=== PATIENT | male | born 1945 | race Caucasian/White ===

== ENCOUNTER 2017-02-14 06:14 | Day surgery (SDC) | payer OTHER, MEDICARE ==
[2017-02-06 09:18] VITALS: BMI 27.2
[2017-02-14] MEDS ORDERED: LEVOFLOXACIN 500 MG IVPB 100 ML IVPB ONE (09:09)
[2017-02-14] MEDS ORDERED: MIDAZOLAM HCL 2 MG/2 ML SINGLE DOSE VIAL ONE (09:10)
[2017-02-14] MEDS ORDERED: LEVOFLOXACIN 500 MG PREMIX BAG IVPB ONE (09:22)
[2017-02-14] MEDS ORDERED: PROPOFOL 20 ML ONE (09:27)
[2017-02-14] MEDS ORDERED: FUROSEMIDE 40 MG/4 ML INJECTABLE VIAL ONE (10:37)
[2017-02-14] MEDS ORDERED: ACETAMINOPHEN 325 MG TABLET (FP) PO PRN (10:57)
[2017-02-14] MEDS ORDERED: ONDANSETRON 4 MG/2 ML VIAL IVPUSH PRN (10:57)
[2017-02-14] MEDS ORDERED: oxyCODONE HCL 5 MG TABLET PO PRN ×2 (10:57→11:12)
[2017-02-14] MEDS ORDERED: LACTATED RINGERS SOLUTION 1,000 ML IV SCH (11:00)
--- NOTE | 2017-02-14 11:12 | OP ---
Operative Note - Note: Operative Date: 02/14/17 Pre-Operative Diagnosis: BPH with incomplete emptying Operation: cysto/bipolar TURP/TURVP(plasma button) Findings: trilobar hyperplasia Post-Operative Diagnosis: Same as Pre-op Surgeon: Yanick Haque Anesthesiologist/DRIVER LICENSE REVIEWING OFFICER: Domenica Casillas Anesthesia: Spinal Specimens Removed: prostate chips Estimated Blood Loss (mls): 25 Drains & Tubes with Location: 24 fr bergeron Operative Report Dictated: Yes
[2017-02-14] MEDS ORDERED: ELECTROLYTE-148 SOLN 1,000 ML IV SCH (11:15)
[2017-02-14 12:22] VITALS: TEMP 97.6
[2017-02-14 14:40] VITALS: BP 113/63; PULSE 67
--- NOTE | 2017-02-14 16:02 | OP ---
DATE OF OPERATION: 02/14/2017 PREOPERATIVE DIAGNOSIS: Benign prostatic hypertrophy with urinary obstruction and incomplete emptying. POSTOPERATIVE DIAGNOSIS: Benign prostatic hypertrophy with urinary obstruction and incomplete emptying. PROCEDURE: Cystoscopy, bipolar transurethral resection of the prostate, and bipolar transurethral vaporization of the prostate with olympus plasma button. SURGEON: Yanick Haque MD INDICATIONS: Patient is a 71-year-old male with history of recurrent urinary retention and BPH, obstructive uropathy, who, after being given treatment options, elected to undergo bipolar vaporization and resection of prostate. He understood the risks of bleeding, infection, impotence, incontinence, stricture formation, retrograde ejaculation, potential need for additional prostate surgery in the light of the very large gland, potential need for additional procedures. DESCRIPTION OF PROCEDURE: After informed consent was obtained, the patient was taken to the OR and placed supine on the OR table. With cardiac monitoring administered and spinal anesthetic given, he was prepped and draped in dorsal lithotomy position. The 26-sheath resectoscope with visual obturator was inserted into the urethra without difficulty, and it was noted that prostatic urethra was 5 cm and visually occlusive with an enlarged median bar. There were no tumors or stones noted in the bladder. At this point, the median bar was first taken down with the loop electrode using bipolar energy with the Olympus set. Then, the prostate chips were removed with the Canwest evacuator. With the median bar now taken down, there was a better flow of water in and out of the scope to improve visibility. At this point, then, the previous area of the median bar that was resected was then vaporized, and then, lateral tissue was then vaporized, as well, bilaterally. There was no vaporization carried out within 1 cm of the verumontanum to minimize the chance of incontinence. All bleeding sites were fulgurated. With the resectoscope situated just past the verumontanum going towards the bladder, a wide-open channel was noted into the bladder indicating reduction of obstructive tissue. There were no more residual chips in the bladder, and there was no injury to the ureteral orifices. At this point, resectoscope was then removed, and a 24-Marshallese Ludwig was then placed to straight drainage. Clear urine was retrieved. Patient was then awoken from anesthesia and transferred to the recovery room in stable condition. There were no complications. ESTIMATED BLOOD LOSS: Minimal. Gogo [id number] MTDD
--- NOTE | 2017-02-15 13:34 | PATH ---
Surgical Pathology Report Patient Name: [facility]. Rec. #: [id number] /Age/Gender: 1945 (Age: 71) / M Account: [id number] Location: [facility] SUR[facility]ICAL Taken: 02/14/2017 Received: 02/14/2017 Reported: 02/15/2017 Physicians: Yanick Haque M.D. Specimen(s) Received PROSTATE CHIPS Clinical History BPH with UTI Final Diagnosis PROSTATE, TUR: BENIGN PROSTATE TISSUE WITH GLANDULAR AND STROMAL HYPERPLASIA AND FOCI OF CHRONIC INFLAMMATION. UROTHELIAL MUCOSA WITH CHRONIC INFLAMMATION. Electronically Signed Sherwin Alvarado M.D. Gross Description Received in formalin labeled "prostate tissue" is a 6 g, 5.5 x 4.6 x 0.7 cm aggregate of pope, irregular, firm to rubbery portions of tissue, consistent with prostate tissue. The specimen is submitted in toto in 7 cassettes. /02/14/2017 saudi02/14/2017
== END 2017-02-14 14:30 | disposition home or self-care (01) ==
LOC: JASU-SURG 06:14
PROVIDERS: ATTEND Urology
PROC: 0TJB8ZZ Inspection of Bladder, Via Natural or Artificial Opening Endoscopic (ICD-10-PCS; 2017-02-14)
PROC: 0VT08ZZ Resection of Prostate, Via Natural or Artificial Opening Endoscopic (ICD-10-PCS; 2017-02-14)
PROC: 0VT08ZZ Resection of Prostate, Via Natural or Artificial Opening Endoscopic (ICD-10-PCS; principal; 2017-02-14 09:00)
DX: N40.1 Benign prostatic hyperplasia with lower urinary tract symptoms (principal); R33.8 Other retention of urine; N13.8 Other obstructive and reflux uropathy
CPT/HCPCS: 88305-TC; 94760